=== PATIENT | female | born 1975 | race Caucasian/White ===

== ENCOUNTER → 2017-11-28 | Outpatient (CLI) | payer OTHER ==
--- NOTE | 2017-11-28 11:29 | Diagnostic Imaging Report ---
INDICATION: Routine screening. COMPARISON: 08/24/2015. TECHNIQUE: 2D and 3D bilateral screening mammography was performed with CAD. FINDINGS: Scattered fibroglandular densities are identified bilaterally. No mass or malignant appearing microcalcifications are seen. The axillae are unremarkable. IMPRESSION: No mammographic features suspicious for malignancy are identified. ACR BI-RADS Category 1: Negative. Result letter will be mailed to the patient. Note: At least 10% of breast cancer is not imaged by mammography. Dictated by: Dictated on workstation # [id number]
== END ==
LOC: RAD 07:37
PROVIDERS: ATTEND Nurse Practitioner Family
DX: Z12.31 Encounter for screening mammogram for malignant neoplasm of breast (principal)
CPT/HCPCS: 77067